=== PATIENT | female | born 1955 | race Caucasian/White ===

== ENCOUNTER 2017-08-05 19:21 | Emergency (ER) | payer OTHER ==
[2017-08-05 19:54] LABS: % BASOPHILS 0.2 % (0.0-2.0); % EOSINOPHILS 4.5 % (0.0-5.0); % LYMPHOCYTES 24.1 % (20.0-50.0); % MONOCYTES 8.9 % (2.0-10.0); % NEUTROPHILS 62.3 % (40.0-80.0); EOSINOPHILE ABSOLUTE 0.3 Th/cmm (0.1-0.4); HEMATOCRIT 38.7 % (41.0-60); HEMOGLOBIN 13.3 gm/dL (12-16); LYMPHOCYTE ABSOLUTE 1.7 Th/cmm (1.5-3.0); MEAN CELL VOLUME 88.6 fl (81-100); MEAN CORPUSCULAR HEMOGLOBIN 30.5 pg (27.0-31.0); MEAN CORPUSCULAR HGB CONC 34.4 pg (28.0-36.0); MEAN PLATELET VOLUME 7.6 fl; MONOCYTE ABSOLUTE 0.6 Th/cmm (0.3-1.0); NEUTROPHILE ABSOLUTE 4.5 Th/cmm (1.8-8.0); PLATELET COUNT 232 Th/cmm (150-400); RED BLOOD COUNT 4.37 Mil/cmm (3.80-5.10); RED CELL DISTRIBUTION WIDTH 12.4 % (11.5-20.0); WHITE BLOOD COUNT 7.1 Th/cmm (4.8-10.8)
[2017-08-05 20:13] LABS: INR 1.07 (0.5-1.4); PROTHROMBIN TIME (TEST) 11.1 SECONDS (9.5-11.5)
[2017-08-05 20:16] LABS: ALB/GLOB RATIO 1.3 (1.0-1.8); ALKALINE PHOSPHATASE 88 U/L (34-104); ANION GAP 13.3 (7.0-16.0); BILIRUBIN,TOTAL 0.3 mg/dL (0.3-1.0); BUN - UREA NITROGEN 13 mg/dL (7-25); CALCIUM SERUM 9.2 mg/dL (8.6-10.3); CARBON DIOXIDE 24.4 mEq/L (21.0-31.0); CHLORIDE 98 mEq/L (98-107); CREATININE - SERUM 0.5 mg/dL (0.6-1.2); GFR AFRICAN-AMERICAN > 60.0 ml/min (>90); GFR NON AFRICAN-AMERICAN > 60.0 ml/min; GLUCOSE 174 mg/dL (70-105); POTASSIUM SERUM 3.7 mEq/L (3.5-5.1); SGOT 21 U/L (13-39); SGPT/ALT 17 U/L (7-52); SODIUM SERUM 132 mEq/L (136-145); TOTAL PROTEIN,SERUM 7.2 gm/dL (6.0-8.3)
[2017-08-05 20:53] LABS: CHOLESTEROL 183 mg/dL (<200); HDL -HIGH DENSITY LIPOPROTEIN 43 mg/dL (23-92); TRIGLYCERIDES 244 mg/dL (<150)
--- NOTE | 2017-08-05 22:04 | ED Physician Chart ---
ED Chief Complaint/HPI - Patient Information Date Seen:: 08/05/17 Time Seen:: 21:35 Chief Complaint:: DIZZINESS History of Present Illness:: THIS IS A 62 YR OLD FEMALE WHO GOT A SUDDEN SPELL OF DIZZINESS WHILE SHOPPING AT THE STORE AND WENT DOWN. SHE DID NO LOOSE CONSCIOUSNESS. SHE STATES THAT SHE HAD SOME PAIN IN THE BACK OF HER HEAD. SHE DENIES NAUSEA AND VOMITING. Allergies:: Allergies Allergy/AdvReac Type Severity Reaction Status Date / Time No Known Allergies Allergy Verified 08/05/17 21:37 Vitals:: Vital Signs - 8 hr 08/05/17 21:30 Temp 98.7 F HR 98 RR 18 BP 136/66 O2 Sat % 99 Historian:: Patient, EMS, Family Member Review:: Nurse's Note Reviewed ED Review of Systems - Review of Systems General/Constitutional: No fever, No chills, No weight loss, No weakness, No diaphoresis, No edema, No loss of appetite Skin: No skin lesions, No rash, No bruising Head: Headache, Light headed Eyes: No loss of vision, No pain, No diplopia ENT: No earache, No nasal drainage, No sore throat, No tinnitus Neck: No neck pain, No swelling, No thyromegaly, No stiffness, No mass noted Cardio Vascular: No chest pain, No palpitations, No PND, No orthopnea, No edema Pulmonary: No SOB, No cough, No sputum, No wheezing GI: No nausea, No vomiting, No diarrhea, No pain, No melena, No hematochezia, No constipation, No hematemesis G/U: No dysuria, No frequency, No hematuria Musculoskeletal: No bone or joint pain, No back pain, No muscle pain Endocrine: No polyuria, No polydipsia Psychiatric: No prior psych history, No depression, No anxiety, No suicidal ideation Hematopoietic: No bruising, No lymphadenopathy Allergic/Immuno: No urticaria, No angioedema Neurological: No syncope, No focal symptoms, No weakness, No paresthesia, Headache, No seizure, Dizziness, No confusion, No vertigo ED Past Medical History - Past Medical History Obtainable: Yes Past Medical History: Dyslipidemia Family History: None Social History: Non Smoker, No Alcohol, No Drug Use, Family Medical History - Family Member Mother History Unknown: Yes ED Physical Exam - Physical Examination General/Constitutional: Awake, Well-developed, well-nourished, Alert, No distress, GCS 15, Non-toxic appearing, Ambulatory Head: Atraumatic Eyes: Lids, conjuctiva normal, PERRL, EOMI Skin: Nl inspection, No rash, No skin lesions, No ecchymosis, Well hydrated, No lymphadenopathy ENMT: External ears, nose nl, Nasal exam nl, Lips, teeth, gums nl Neck: Nontender, Full ROM w/o pain, No JVD, No nuchal rigidity, No bruit, No mass, No stridor Respiratory: Nl effort/Exclusion, Clear to Auscultation, No Wheeze/Rhonchi/Rales Cardio Vascular: RRR, No murmur, gallop, rubs, NL S1 S2 GI: No tenderness/rebounding/guarding, No organomegaly, No hernia, Normal BS's, Nondistended, No mass/bruits, No McBurney tenderness : No CVA tenderness Extremities: No tenderness or effusion, Full ROM, normal strength in all extremities, No edema, Normal digits & nails Neuro/Psych: Alert/oriented, DTR's symmetric, Normal sensory exam, Normal motor strength, Judgement/insight normal, Mood normal, Normal gait, No focal deficits Misc: Normal back, No paraspinal tenderness ED Labs/Radiology/EKG Results - Lab Results Results: Laboratory Tests 08/05/17 08/05/17 08/05/17 19:35 19:49 19:49 WBC RBC Hgb Hct MCV MCH MCHC Differential RDW Plt Count MPV Neutrophils % Lymphocytes % Monocytes % Eosinophils % Basophils % PT 11.1 INR 1.07 PTT (Actin FS) 24.3 L Sodium 132 L Potassium 3.7 Chloride 98 Carbon Dioxide 24.4 Anion Gap 13.3 BUN 13 Creatinine 0.5 L Est GFR ( Amer) > 60.0 Est GFR (Non-Af Amer) > 60.0 BUN/Creatinine Ratio 26.0 Glucose 174 H Calcium 9.2 Total Bilirubin 0.3 AST 21 ALT 17 Alkaline Phosphatase 88 Troponin I Total Protein 7.2 Albumin 4.0 Globulin 3.2 Albumin/Globulin Ratio 1.3 Triglycerides 244 H Cholesterol 183 LDL Cholesterol Direct 99 HDL Cholesterol 43 TSH 08/05/17 08/05/17 08/05/17 19:49 19:49 19:49 WBC 7.1 RBC 4.37 Hgb 13.3 Hct 38.7 L MCV 88.6 MCH 30.5 MCHC Differential 34.4 RDW 12.4 Plt Count 232 MPV 7.6 Neutrophils % 62.3 Lymphocytes % 24.1 Monocytes % 8.9 Eosinophils % 4.5 Basophils % 0.2 PT INR PTT (Actin FS) Sodium Potassium Chloride Carbon Dioxide Anion Gap BUN Creatinine Est GFR ( Amer) Est GFR (Non-Af Amer) BUN/Creatinine Ratio Glucose Calcium Total Bilirubin AST ALT Alkaline Phosphatase Troponin I < 0.01 L Total Protein Albumin Globulin Albumin/Globulin Ratio Triglycerides Cholesterol LDL Cholesterol Direct HDL Cholesterol TSH 3.01 - Radiology Results Results: CHEST X-RAY = NAD Comments:: CT SCAN OF THE BRAIN = - EKG Interpretations EKG Time:: 19:58 Rate & Rhythm: 88, SINUS [place]: RIGHT AXIS Intervals: NO ECTOPY SEEN ED Assessment - Assessment General Assessment: DIZZINESS DIABETES MELLITUS ED Septic Shock - . Is Septic Shock (SBP<90, OR Lactate>4 mmol\L) present?: No - <6hrs of presentation: Vital Signs: Vital Signs - 8 hr 08/05/ 21:30 Temp 98.7 F HR 98 RR 18 BP 136/66 O2 Sat % 99 ED Reassessment (Disposition) - Reassessment Reassessment Condition:: Improved - Diagnosis Diagnosis:: DIZZINESS DIABETES MELLITUS UNCONTROLLED GRANULAOMA OF THE BRAIN. - Aftercare/Follow up Instructions Aftercare/Follow-Up Instructions:: Counseled pt regarding lab results/diagnosis & need follow up, Refer to Discharge Instructions, Counseled pt & family regarding lab results/diagnosis & need follow up - Patient Disposition Discharge/Transfer:: Home Condition at Disposition:: Improved ED Discharge Plan - Patient Disposition Admit/Discharge/Transfer: PT DISCHARGED HOME Condition at Disposition: Improved
[2017-08-05 22:41] LABS: URINE MICROSCOPIC INDICATED? YES; URINE SOURCE CLEAN C
[2017-08-05 22:42] LABS: URINE BILIRUBIN NEGATIVE (NEGATIVE); URINE BLOOD NEGATIVE (NEGATIVE); URINE GLUCOSE (UA) NEGATIVE (NEGATIVE); URINE KETONE NEGATIVE (NEGATIVE); URINE LEUKOCYTE ESTERASE NEGATIVE (NEGATIVE); URINE NITRATE NEGATIVE (NEGATIVE); URINE PH 6.5 (4.6 - 8.0); URINE PROTEIN NEGATIVE (NEGATIVE); URINE UROBILINOGEN 0.2 E.U./dL (0.2 - 1.0)
[2017-08-05 22:48] LABS: URINE BACTERIA NONE SEEN /hpf (NONE SEEN); URINE CLARITY CLEAR (CLEAR); URINE COLOR YELLOW; URINE EPITHELIAL CELLS NONE SEEN /lpf (FEW); URINE RBC NONE SEEN /hpf (0-5); URINE WBC NONE SEEN /hpf (0-5)
--- NOTE | 2017-08-06 09:14 | Diagnostic Imaging Report ---
Portable chest x-ray Time: 2135 hours History: syncope Allowing for portable technique the heart size is normal. No focal pulmonary parenchymal processes. No hilar or mediastinal abnormalities. Impression: No acute abnormalities.
--- NOTE | 2017-08-06 09:27 | Diagnostic Imaging Report ---
CT scan of the brain without contrast History: Syncope Total DLP equals 512 CTDI equals 29.0 Axial sections were obtained from the base of the skull to the vertex. There is a normal ventricular system size. No focal parenchymal lesions are seen. No evidence of any mass effect or shift of midline structures. No extra-axial masses or abnormal fluid collections. There is a small granuloma in the right basal ganglia old sequela from old infectious processes cannot be excluded. Impression: Negative examination.
[2017-08-06 15:57] LABS: A1C % 8.1 % (4.0-6.0)
== END 2017-08-05 23:45 | disposition home or self-care (01) ==
LOC: ER 19:21
DX: E11.9 Type 2 diabetes mellitus without complications (principal); R42 Dizziness and giddiness; G06.0 Intracranial abscess and granuloma; E78.5 Hyperlipidemia, unspecified
CPT/HCPCS: 36415-UA; 70450-TC; 71045-TC; 80053-TC; 80061-TC; 81001-TC; 83036-90; 84443-TC; 84484-TC; 85025-TC; 85610-TC; 85730-TC; 93005